=== PATIENT | female | born 1945 | race Caucasian/White ===

== ENCOUNTER 2021-08-15 08:02 | Outpatient (CLI) | payer MEDICARE, OTHER | END 2021-08-15 23:59 | disposition home or self-care (01) | LOC: LAB 08:02 | PROVIDERS: ATTEND Podiatrist Foot & Ankle Surgery | DX: Z01.812 Encounter for preprocedural laboratory examination (principal); Z20.822 Contact with and (suspected) exposure to COVID-19 ==

== ENCOUNTER 2021-08-17 06:49 | Day surgery (SDC) | payer MEDICARE, OTHER ==
[2021-08-17] MEDS ORDERED: SUCCINYLCHOLINE CHLORIDE 200 MG/10 ML VIAL IV ONE (06:50)
[2021-08-17] MEDS ORDERED: LIDOCAINE-MPF 2% 5 ML VIAL IJ ONE (06:50)
[2021-08-17] MEDS ORDERED: EPHEDRINE SULFATE 50 MG/ML AMPUL IM ONE (06:50)
[2021-08-17] MEDS ORDERED: PROPOFOL 200 MG/20 ML BOTTLE IV ONE (06:50)
[2021-08-17] MEDS ORDERED: SEVOFLURANE 250 ML BOTTLE IH ONE (06:50)
[2021-08-17] MEDS ORDERED: METOCLOPRAMIDE HCL 10 MG/2 ML VIAL IV ONE (06:50)
[2021-08-17] MEDS ORDERED: ONDANSETRON HCL 4 MG TABLET PO ONE (06:50)
[2021-08-17] MEDS ORDERED: ONDANSETRON 4 MG/2 ML VIAL IV ONE (06:50)
[2021-08-17 07:41] LABS: *BILIRUBIN,URIN NEGATIVE (NEGATIVE); *CLARITY,URINE CLEAR (CLEAR); *COLOR,URINE YELLOW (YELLOW); *KETONES,URINE NEGATIVE (NEGATIVE); *UROBILINOGEN,URINE 0.2 E.U./dl (NORMAL); LEUKOCYTE ESTERASE ,URINE 1+ (NEGATIVE); NITRITE, URINE NEGATIVE (NEGATIVE); UGLUCOSE NEGATIVE (NEGATIVE)
[2021-08-17 07:43] LABS: *BLOOD, URINE TRACE (NEGATIVE)
[2021-08-17] MEDS ORDERED: CEFAZOLIN 50 ML IV ONE (07:44)
[2021-08-17 07:45] LABS: HEMATOCRIT 41.2 % (31.2-41.9); MEAN CORPUSCULAR HEMOGLOBIN 29.5 uug (24.7-32.8); MEAN CORPUSCULAR VOLUME 87.2 fL (75.5-95.3); PLATELET COUNT (AUTO) 281 K/uL (179-408)
[2021-08-17 07:54] LABS: CREATININE 0.6 mg/dL (0.6-1.3); POTASSIUM 3.8 mmol/L (3.5-5.1)
[2021-08-17 07:59] LABS: BILIRUBIN,TOTAL 0.5 mg/dL (0.2-1.0); TOTAL PROTEIN, SERUM 7.4 g/dL (6.4-8.2)
[2021-08-17 08:09] LABS: BACTERIA,URINE FEW /HPF (NONE SEEN); RBC,URINE 0-3 /HPF (0-3); SQUAMOUS EPITHELIAL CELL,UR FEW /HPF (NONE SEEN)
[2021-08-17] MEDS ORDERED: BUPIVACAINE PF 0.5% 30 ML VIAL ONE ×2 (08:18→16:55)
[2021-08-17] MEDS ORDERED: LIDOCAINE HCL 1% 20 ML VIAL ONE (08:18)
[2021-08-17] MEDS ORDERED: MIDAZOLAM HCL 2 MG/2 ML VIAL ONE (08:19)
[2021-08-17] MEDS ORDERED: FENTANYL CITRATE 250 MCG/5 ML AMPUL ONE (08:19)
[2021-08-17] MEDS ORDERED: HYDROMORPHONE 2 MG/1 ML DISP.SYRIN ONE (08:20)
[2021-08-17] MEDS ORDERED: SUCCINYLCHOLINE CHLORIDE 200 MG/10 ML VIAL ONE (08:21)
[2021-08-17] MEDS ORDERED: POLYMYXIN B SULFATE 500,000 UNITS VIAL ONE (09:29)
[2021-08-17] MEDS ORDERED: HYDROMORPHONE 1 MG/1 ML DISP.SYRIN ONE (14:03)
[2021-08-17] MEDS ORDERED: ONDANSETRON 4 MG/2 ML VIAL ONE (14:04)
[2021-08-17] MEDS ORDERED: FENTANYL CITRATE 100 MCG/2 ML AMPUL ONE (14:29)
[2021-08-17] MEDS ORDERED: HYDROCODONE/APAP 5-325MG TABLET ONE (14:42)
[2021-08-17] MEDS ORDERED: LIDOCAINE 1%-EPI 1:100,000 20 ML VIAL ONE (16:55)
== END 2021-08-17 18:20 | disposition home or self-care (01) ==
LOC: DS 06:49
PROVIDERS: ATTEND Podiatrist Foot & Ankle Surgery
DX: M67.01 Short Achilles tendon (acquired), right ankle (principal); M25.561 Pain in right knee; M20.21 Hallux rigidus, right foot; J45.909 Unspecified asthma, uncomplicated; M81.0 Age-related osteoporosis without current pathological fracture; F41.9 Anxiety disorder, unspecified; F32.9 Major depressive disorder, single episode, unspecified; Z79.899 Other long term (current) drug therapy; Z98.890 Other specified postprocedural states
CPT/HCPCS: 27687; 28285; 28289; 28308; 36415; 73630 ×2; 80053; 81001; 85025; 85610; 87086; J0330 ×2; J0690; J1170 ×2; J2250; J2405 ×2; J2765; J3010 ×2; J3490 ×7; J7120; A4217; A4649; A4663; Q0162

== ENCOUNTER 2021-12-19 08:48 | Outpatient (CLI) | payer MEDICARE, OTHER | END 2021-12-19 23:59 | disposition home or self-care (01) | LOC: LAB 08:48 | PROVIDERS: ATTEND Podiatrist Foot & Ankle Surgery | DX: Z01.812 Encounter for preprocedural laboratory examination (principal); Z20.822 Contact with and (suspected) exposure to COVID-19 ==

== ENCOUNTER 2021-12-21 06:02 | Day surgery (SDC) | payer MEDICARE, OTHER ==
[2021-12-21] MEDS ORDERED: ONDANSETRON 4 MG/2 ML VIAL IV ONE (06:03)
[2021-12-21] MEDS ORDERED: LIDOCAINE-MPF 2% 5 ML VIAL IJ ONE (06:03)
[2021-12-21] MEDS ORDERED: CEFAZOLIN 1 G VIAL IM ONE (06:03)
[2021-12-21] MEDS ORDERED: PROPOFOL 200 MG/20 ML BOTTLE IV ONE (06:03)
[2021-12-21] MEDS ORDERED: GLYCOPYRROLATE 0.2 MG/ML VIAL IJ ONE (06:03)
[2021-12-21] MEDS ORDERED: DEXAMETHASONE SOD PHOSPHATE 4 MG INJ IV ONE (06:03)
[2021-12-21] MEDS ORDERED: SEVOFLURANE 250 ML BOTTLE IH ONE (06:03)
[2021-12-21] MEDS ORDERED: hydrALAZINE HCL 20 MG/1 ML VIAL IM ONE (06:03)
[2021-12-21] MEDS ORDERED: NEOSTIGMINE METHYLSULFATE 10 MG/10 ML VIAL IM ONE (06:03)
[2021-12-21] MEDS ORDERED: CEFAZOLIN 50 ML IV ONE ×2 (06:24→12:33)
[2021-12-21] MEDS ORDERED: VANCOMYCIN 1000 MG VIAL ONE ×2 (06:59→10:30)
[2021-12-21] MEDS ORDERED: LIDOCAINE HCL 2% 20 ML VIAL ONE (06:59)
[2021-12-21] MEDS ORDERED: BUPIVACAINE PF 0.5% 30 ML VIAL ONE (06:59)
[2021-12-21 07:03] LABS: HEMATOCRIT 40.1 % (31.2-41.9); MEAN CORPUSCULAR VOLUME 85.4 fL (75.5-95.3); PLATELET COUNT (AUTO) 256 K/uL (179-408)
[2021-12-21 07:08] LABS: *BILIRUBIN,URIN NEGATIVE (NEGATIVE); *BLOOD, URINE NEGATIVE (NEGATIVE); *CLARITY,URINE CLEAR (CLEAR); *COLOR,URINE YELLOW (YELLOW); *KETONES,URINE NEGATIVE (NEGATIVE); *UROBILINOGEN,URINE 0.2 E.U./dl (NORMAL); LEUKOCYTE ESTERASE ,URINE 1+ (NEGATIVE); NITRITE, URINE NEGATIVE (NEGATIVE); PH,URINE 5.5 (5.0-8.0); UGLUCOSE NEGATIVE (NEGATIVE)
[2021-12-21 07:20] LABS: CREATININE 0.7 mg/dL (0.6-1.3); POTASSIUM 4.4 mmol/L (3.5-5.1)
[2021-12-21 07:26] LABS: BILIRUBIN,TOTAL 0.4 mg/dL (0.2-1.0); TOTAL PROTEIN, SERUM 7.1 g/dL (6.4-8.2)
[2021-12-21] MEDS ORDERED: HYDROMORPHONE 2 MG/1 ML DISP.SYRIN ONE (07:52)
[2021-12-21] MEDS ORDERED: ROCURONIUM BROMIDE 50 MG/5 ML VIAL ONE ×2 (07:53→08:43)
[2021-12-21] MEDS ORDERED: SEVOFLURANE 250 ML BOTTLE ONE (08:43)
[2021-12-21] MEDS ORDERED: FENTANYL CITRATE 100 MCG/2 ML AMPUL ONE (13:01)
[2021-12-21] MEDS ORDERED: HYDROCODONE/APAP 5-325MG TABLET ONE (15:27)
[2021-12-21 15:51] LABS: MUCUS,URINE MODERATE /LPF (0-FEW); RBC,URINE 0-3 /HPF (0-3)
[2021-12-21 15:52] LABS: BACTERIA,URINE FEW /HPF (NONE SEEN); SQUAMOUS EPITHELIAL CELL,UR FEW /HPF (NONE SEEN); URINE AMORPHOUS URATE MANY /HPF
== END 2021-12-21 16:30 | disposition home or self-care (01) ==
LOC: DS 06:02
PROVIDERS: ATTEND Podiatrist Foot & Ankle Surgery
DX: M79.672 Pain in left foot (principal); M67.02 Short Achilles tendon (acquired), left ankle; M93.872 Other specified osteochondropathies, left ankle and foot; M72.2 Plantar fascial fibromatosis; M20.42 Other hammer toe(s) (acquired), left foot; I10 Essential (primary) hypertension; J45.909 Unspecified asthma, uncomplicated; M81.0 Age-related osteoporosis without current pathological fracture; F41.9 Anxiety disorder, unspecified; F32.9 Major depressive disorder, single episode, unspecified; Z79.899 Other long term (current) drug therapy; Z98.890 Other specified postprocedural states; Z88.8 Allergy status to other drugs, medicaments and biological substances
CPT/HCPCS: 27687; 27634; 27700; 28285; 80053; 81001; 85025; 85730; 87186; 87086; 87077; 36415; 73610 ×2; 73630 ×2; J3490 ×5; J0690 ×3; J1100; J0360; J2405; J3370 ×2; J3010; J1170; J7120; A4649